=== PATIENT | male | born 1970 | race Hispanic/Latino ===

== ENCOUNTER 2017-11-12 16:37 | Emergency (ER) | payer SELFPAY ==
--- NOTE | 2017-11-12 17:15 | RAD ---
THREE VIEWS OF THE RIGHT HAND: 11/12/17 COMPARISON: None. HISTORY: Smashed left hand yesterday. FINDINGS: No displaced fracture or evidence of dislocation. No radiopaque foreign body or subcutaneous gas. IMPRESSION: No displaced fracture or evidence of dislocation. POS: [facility]
== END 2017-11-12 17:36 | disposition home or self-care (01) ==
LOC: ERS 16:37
DX: S60.221A Contusion of right hand, initial encounter (principal); E78.5 Hyperlipidemia, unspecified; E11.9 Type 2 diabetes mellitus without complications; W23.0XXA Caught, crushed, jammed, or pinched between moving objects, initial encounter; Z79.899 Other long term (current) drug therapy